=== PATIENT | male | born 1980 | race Caucasian/White ===

== ENCOUNTER 2020-08-21 12:58 | Emergency (ER) | payer SELFPAY ==
[~2020-08-21] VITALS: Ht 154.9 cm; Wt 82.0 kg
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
[2020-08-21 13:29] VITALS: BP 112/74
[2020-08-21] MEDS ORDERED: CEPH-507 PO (13:29)
== END 2020-08-21 13:33 | disposition home or self-care (01) ==
LOC: ER FS 13:00
DX: S83.512A Sprain of anterior cruciate ligament of left knee, initial encounter (principal); L03.116 Cellulitis of left lower limb; V29.9XXA Motorcycle rider (driver) (passenger) injured in unspecified traffic accident, initial encounter
CPT/HCPCS: 99283